=== PATIENT | female | born 1955 | race Hispanic/Latino ===

== ENCOUNTER 2017-03-22 06:00 | Day surgery (SDC) | payer MEDICAID ==
[~2017-03-22] VITALS: Ht 152.4 cm; Wt 82.3 kg
[~2017-03-22 06:00] MED LIST: ALBU90AE IH; AMIO200T2 PO; CARV6.25 PO; CITA-107 PO; FURO40TA5 PO; LISINOPRIL; SERTRALINE; SODIUM CHLORIDE 0.9% 1000ML 1,000 ML IV ONE; SPIR25TA4 PO; WARF10TA45 PO
[2017-03-22 06:12] VITALS: BP 136/66
[2017-03-22] MEDS ORDERED: SERT50TA12 PO ×2 (06:36)
[2017-03-22] MEDS ORDERED: POTA10TA11 PO ×2 (06:36)
[2017-03-22] MEDS ORDERED: ATOR40TA71 PO ×2 (06:36)
[2017-03-22] MEDS ORDERED: NITR0.4T50 SL ×2 (06:36)
[2017-03-22] MEDS ORDERED: APIX5TAB PO ×2 (06:36)
[2017-03-22] MEDS ORDERED: LISI-617 PO ×2 (06:36)
[2017-03-22] MEDS ORDERED: MEPERIDINE-PF 50 MG/ML SYG ONE (06:49)
[2017-03-22] MEDS ORDERED: MIDAZOLAM HCL 1 MG/ML 2ML VIAL ONE (06:49)
[2017-03-22 07:18] VITALS: BP 113/55
== END 2017-03-22 08:17 ==
LOC: DAH 06:00
PROVIDERS: ATTEND Internal Medicine
DX: K63.5 Polyp of colon (principal); K63.89 Other specified diseases of intestine; K57.30 Diverticulosis of large intestine without perforation or abscess without bleeding; E78.00 Pure hypercholesterolemia, unspecified; I10 Essential (primary) hypertension; F41.9 Anxiety disorder, unspecified; F32.9 Major depressive disorder, single episode, unspecified; Z86.73 Personal history of transient ischemic attack (TIA), and cerebral infarction without residual deficits; K21.9 Gastro-esophageal reflux disease without esophagitis; Z68.31 Body mass index [BMI] 31.0-31.9, adult; Z79.899 Other long term (current) drug therapy; D64.9 Anemia, unspecified; Z95.0 Presence of cardiac pacemaker
CPT/HCPCS: 45380; 88305; A4606; J2175; J2250; J7030; 99152; 99153

== ENCOUNTER → 2017-04-19 | Outpatient (CLI) | payer MEDICAID ==
[~2017-04-19] MED LIST changes: +APIX5TAB PO; +ATOR40TA71 PO; +ISOVUE-370 50ML VIAL IV ONE; +LISI-617 PO; +NITR0.4T50 SL; +POTA10TA11 PO; +SERT50TA12 PO; -SODIUM CHLORIDE 0.9% 1000ML 1,000 ML IV ONE
== END | disposition home or self-care (01) ==
LOC: OIH 09:41
PROVIDERS: ATTEND Internal Medicine Gastroenterology
DX: K76.0 Fatty (change of) liver, not elsewhere classified (principal); Z90.710 Acquired absence of both cervix and uterus
CPT/HCPCS: 74178; Q9967

== ENCOUNTER → 2017-04-22 | Outpatient (CLI) | payer MEDICAID ==
[~2017-04-22] MED LIST changes: -ISOVUE-370 50ML VIAL IV ONE; -LISINOPRIL; -SERTRALINE; -WARF10TA45 PO
== END | disposition home or self-care (01) ==
LOC: RAH 07:58
PROVIDERS: ATTEND Internal Medicine Gastroenterology
DX: K21.9 Gastro-esophageal reflux disease without esophagitis (principal); Q39.6 Congenital diverticulum of esophagus
CPT/HCPCS: 74240

== ENCOUNTER → 2017-06-18 | Outpatient (CLI) | payer MEDICAID ==
[~2017-06-18] MED LIST changes: -AMIO200T2 PO; +AMIO200T5 PO; -SPIR25TA4 PO; +SPIR25TA6 PO
== END | disposition home or self-care (01) ==
LOC: RAH 17:43
PROVIDERS: ATTEND Internal Medicine Gastroenterology
DX: M47.895 Other spondylosis, thoracolumbar region (principal)
CPT/HCPCS: 71046

== ENCOUNTER 2018-06-04 08:57 | Observation (INO) | payer MEDICAID ==
[2018-06-02 10:29] VITALS: BP 150/75
[2018-06-02 10:45] LABS: BASOPHILS % (AUTO) 0.5 % (0.0-5.0); EOSINOPHILS % (AUTO) 2.7 % (0.0-8.0); LYMPHOCYTES % (AUTO) 23.1 % (21.0-51.0); MEAN CORPUSCULAR HEMOGLOBIN 29.4 pg (27.0-33.0); MEAN CORPUSCULAR VOLUME 86.4 fL (79-99); MONOCYTES % (AUTO) 8.2 % (3.0-13.0); NEUTROPHILS % (AUTO) 65.5 % (40.0-77.0); PLATELET COUNT (AUTO) 127 K/uL (130-400); RED BLOOD CELL COUNT(AUTO) 4.29 MIL/uL (4.00-5.50); RED CELL DISTRIBUTION WIDTH 15.9 % (11.0-15.5); WHITE BLOOD COUNT (AUTO) 3.7 K/uL (4.8-10.8)
[2018-06-02 10:52] LABS: POTASSIUM 4.4 mmol/L (3.5-5.1)
[2018-06-02 10:52] LABS: APPEARANCE,URINE CLEAR (CLEAR); BILIRUBIN,URINE NEGATIVE (NEGATIVE); COLOR,URINE YELLOW (YELLOW); GLUCOSE, URINE (UA) NEGATIVE (NEGATIVE); KETONES,URINE 5 mg/dL (NEGATIVE); LEUKOCYTE ESTERASE ,URINE TRACE (NEGATIVE); NITRATE,URINE NEGATIVE (NEGATIVE); OCCULT BLOOD,URINE NEGATIVE (NEGATIVE); PROTEIN,URINE TRACE mg/dL (NEGATIVE)
[2018-06-02 10:56] LABS: INR 0.95 (0.85-1.15); PARTIAL THROMBOPLASTIN TIME 27.1 SEC (26.3-35.5)
[2018-06-02 11:07] LABS: BACTERIA,URINE Rare /HPF (None Seen); RBC,URINE 0-1 /HPF (0-1); SQUAMOUS EPITHELIAL CELL,UR Rare /HPF (0-2); WBC,URINE 0-1 /HPF (0-1)
--- NOTE | 2018-06-03 11:06 | NUR ---
CBC FAXED AND REPORTED ABNORMAL WBC, PLATELET LEVEL TO DR. IRMA WALSH. SHE WILL INFORM Mariana GONGORA NP.
--- NOTE | 2018-06-03 13:41 | NUR ---
CBC PER Mariana GONGORA, RIVER CAPTAIN PROCEED WITH PLANNED PROCEDURE.
[~2018-06-04] VITALS: Ht 152.4 cm; Wt 82.7 kg
[2018-06-04] VITALS (9 sets, daily range): BP systolic 101–128; BP diastolic 51–68
[~2018-06-04 08:57] MED LIST changes: +ACET325C5 PO; +ASPI-555 PO; -CITA-107 PO; -FURO40TA5 PO; +ISOS30TA6 PO; +LUBI24CA2 PO; +OMEP40CA37 PO; -SERT50TA12 PO; +SODIUM CHLORIDE 0.9% 500ML 500 ML IV SCH; -SPIR25TA6 PO; +TRAM50TA4 PO; +[UNRECOGNIZED DRUG - OTHER] PO
[2018-06-04] MEDS ORDERED: SODIUM CHLORIDE 0.9% 1000ML 1,000 ML IV ONE (09:07)
--- NOTE | 2018-06-04 09:40 | NUR ---
EDEMA HX ELEPHANTIASIS TO BILATERAL LOWER EXTREMITIES. DARK DISCOLORATION NOTED TO BLE. Addendum: 06/04/18 at 0944 by TERESA CARPENTER RN Amended: Links added.
[2018-06-04] MEDS ORDERED: TORS20TA4 PO (09:49)
[2018-06-04] MEDS ORDERED: LISI10TA7 PO (09:49)
[2018-06-04] MEDS ORDERED: ASPI-1005 PO (09:49)
[2018-06-04] MEDS ORDERED: LIDOCAINE HCL 2% 20ML ONE (13:49)
[2018-06-04] MEDS ORDERED: BIVALIRUDIN 250 MG/VIAL IV ONE (13:49)
[2018-06-04] MEDS ORDERED: IOHEXOL 350 MG/ML 100ML INFUS..BTL IV ONE (13:49)
[2018-06-04] MEDS ORDERED: IOHEXOL-350 50ML VIAL IV ONE (13:49)
[2018-06-04] MEDS ORDERED: NITROGLYCERIN 5 MG/ML 10 ML VIAL IV ONE (13:49)
--- NOTE | 2018-06-04 14:05 | NUR ---
procedure pt taken to medical lab technologist for heart cath, pt awake and alert, family at bedside.
[2018-06-04] MEDS ORDERED: MIDAZOLAM HCL 1 MG/ML 2ML VIAL ONE (14:21)
[2018-06-04] MEDS ORDERED: MILRINONE-D5W 20 MG/100 ML 100 ML IV SCH (16:15)
[2018-06-04] MEDS ORDERED: NITROGLYCERIN 0.4 MG SL TAB SL PRN (16:30)
[2018-06-04] MEDS ORDERED: ALBUTEROL SULFATE 0.083% 2.5 MG/3 ML INH IH PRN (16:30)
--- NOTE | 2018-06-04 17:05 | NUR ---
POST WAITING FOR ROOM IN TELEMETRY FLOOR TO TRANSFER PATIENT . TRUCKLOAD CHECKER AWARE
--- NOTE | 2018-06-04 17:05 | NUR ---
POST RECEIVED PT BACK FROM [facility]ACK[facility] , S/P RIGHT /LEFT HEART CATH, DRESSING TO RIGHT GROIN DRY AND INTACT, SEE POST CATH ASSESSMENT. PT AWAKE AND ALERT IN BED, VS STABLE , INSTRUCTED TO KEEP BEDREST FOR 4HRS , TO KEEP LEG STRAIGHT AT ALL TIMES, TO CALL NURSE FOR ANY ASSISTANCE NOTED. FAMILY AT BEDSIDE DR. Maty SOLIS SPOKE TO FAMILY ABOUT HEART CATH RESULTS AND TREATMENT.
--- NOTE | 2018-06-04 18:55 | NUR ---
report report given to Jean Marie Vasquez RN at telemetry floor,
[2018-06-04] MEDS: ACETAMINOPHEN 325 MG TAB PO PRN (19:10)
--- NOTE | 2018-06-04 19:15 | NUR ---
transfer patient transfered to room 231 , pt awake and alert in bed, no distress noted. right groin dressing dry and intact, family at bedside.
--- NOTE | 2018-06-04 19:30 | NUR ---
PT ARRIVED TO UNIT S/P C. NO DISTRESS NOTED. NO SOB OR PAIN STATED. MINIMAL TENDERNESS NOTED TO GROIN SITE. FAMILY AT BEDSIDE. CONTINUES ON BEDREST. PT HAS EDEMA TO LOWER EXTREMITIES. BOWEL MOVEMENT 06/04. ABLE TO AMBULATE WITHOUT ASSISTANCE. PERRLA.
[2018-06-04] MEDS: CARVEDILOL 6.25 MG TABLET PO SCH (20:20)
[2018-06-04] MEDS: LUBIPROSTONE 24 MCG CAP PO SCH (20:21)
[2018-06-04] MEDS: ATORVASTATIN CALCIUM 40 MG TABLET PO SCH (20:21)
[2018-06-04] MEDS: TRAMADOL HCL 50 MG TABLET PO PRN (20:22)
[2018-06-04] MEDS ORDERED: APIXABAN 5 MG TABLET PO SCH (21:00)
[2018-06-04] MEDS ORDERED: ONDANSETRON HCL 4 MG/2 ML VIAL ONE (23:05)
[2018-06-05] VITALS (15 sets, daily range): BP systolic 78–125; BP diastolic 37–61
--- NOTE | 2018-06-05 01:20 | NUR ---
PT ON MILRINONE DRIP. PT STATED FEELING NAUSEATED, DIZZY, AND HAS GENERAL WEAKNESS AND IS UNABLE TO WALK BACK TO BED AFTER HAVING LOOSE STOOLS. PT PLACED ON NASAL CANNULA AT 3LPM DUE TO SOB. DR. SOLIS PAGED AND NEW ORDER FOR 250ML BOLUS AND ORTHOSTATIC BP'S IN THE AM.
[2018-06-05] MEDS ORDERED: SODIUM CHLORIDE 0.9% 250 ML IV ONE (01:42)
--- NOTE | 2018-06-05 06:45 | NUR ---
PT BP 70'S/30'S. DR. SOLIS PAGED. PENDING CALL BACK.
[2018-06-05] MEDS ORDERED: LISINOPRIL 10 MG TABLET PO SCH (09:00)
[2018-06-05] MEDS: ISOSORBIDE MONO 30MG TAB SR PO SCH (09:00)
[2018-06-05] MEDS: LUBIPROSTONE 24 MCG CAP PO SCH ×2 (09:00→19:53)
[2018-06-05] MEDS: CARVEDILOL 6.25 MG TABLET PO SCH ×2 (09:00→19:54)
[2018-06-05] MEDS ORDERED: LISI10TA7 PO (09:34)
[2018-06-05] MEDS ORDERED: TORS100T16 PO (09:34)
[2018-06-05 09:47] LABS: MEAN CORPUSCULAR HEMOGLOBIN 29.6 pg (27.0-33.0); MEAN CORPUSCULAR HGB CONC 34.3 g/dL (32.0-36.0); MEAN CORPUSCULAR VOLUME 86.2 fL (79-99); NUCLEATED RED BLOOD CELLS 0.1 % (0.0-0.19); PLATELET COUNT (AUTO) 107 K/uL (130-400); RED BLOOD CELL COUNT(AUTO) 3.48 MIL/uL (4.00-5.50); RED CELL DISTRIBUTION WIDTH 16.2 % (11.0-15.5); WHITE BLOOD COUNT (AUTO) 4.5 K/uL (4.8-10.8)
[2018-06-05] MEDS: ASPIRIN 81MG TAB.CHEW PO SCH (10:01)
[2018-06-05] MEDS: PANTOPRAZOLE SODIUM 40 MG TABLET.DR PO SCH (10:01)
[2018-06-05] MEDS: AMIODARONE HCL 200 MG TABLET PO SCH (10:02)
[2018-06-05] MEDS: APIXABAN 5 MG TABLET PO SCH ×2 (10:02→19:55)
[2018-06-05] MEDS: POTASSIUM CHLORIDE 20 MEQ ERTAB PO SCH (10:03)
[2018-06-05 10:19] LABS: CREATININE 1.7 mg/dL (0.5-1.5); POTASSIUM 3.9 mmol/L (3.5-5.1)
[2018-06-05 10:25] LABS: ALBUMIN 2.5 g/dL (3.5-5.0); BILIRUBIN,TOTAL 0.8 mg/dL (0.2-1.0); TOTAL PROTEIN, SERUM 5.7 g/dL (6.0-8.3)
[2018-06-05] MEDS: SODIUM CHLORIDE 0.9% 1000ML 1,000 ML IV SCH (12:00)
[2018-06-05] MEDS: TRAMADOL HCL 50 MG TABLET PO PRN (16:37)
[2018-06-05] MEDS: ATORVASTATIN CALCIUM 40 MG TABLET PO SCH (19:55)
--- NOTE | 2018-06-05 21:00 | NUR ---
PT IN BED, STATES HAVING LESS DIZZY SPELLS DURING THE DAY, BUT DOES CONTINUE TO FEEL WEAK AND DIZZY AT TIMES. ESPECIALLY WHEN STANDING. PT NO ABLE TO COMPLETE ORTHOSTATIC BP'S BECAUSE SHE GETS VERY WEAK WHEN DOING THE STANDING PART. PT ON NASAL CANNULA. GETS SOB AT TIMES AND STATES HAVING EPISODES WHERE SHE CANNOT BREATH AND HAS TO RAISE HERSELF UP.
[2018-06-06] MEDS: SODIUM CHLORIDE 0.9% 1000ML 1,000 ML IV SCH (01:20)
[2018-06-06 03:00] VITALS: BP_SYST 104; BP_SYST 113; BP_SYST 114; BP_DIAS 42; BP_DIAS 56; BP_DIAS 59
[2018-06-06 03:41] LABS: BASOPHILS % (AUTO) 0.4 % (0.0-5.0); HEMATOCRIT 29.7 % (36-48); LYMPHOCYTES % (AUTO) 27.5 % (21.0-51.0); MEAN CORPUSCULAR HEMOGLOBIN 29.4 pg (27.0-33.0); MEAN CORPUSCULAR HGB CONC 34.2 g/dL (32.0-36.0); MEAN CORPUSCULAR VOLUME 85.9 fL (79-99); MONOCYTES % (AUTO) 11.7 % (3.0-13.0); NEUTROPHILS % (AUTO) 58.4 % (40.0-77.0); NUCLEATED RED BLOOD CELLS 0.1 % (0.0-0.19); PLATELET COUNT (AUTO) 79 K/uL (130-400); RED BLOOD CELL COUNT(AUTO) 3.46 MIL/uL (4.00-5.50); WHITE BLOOD COUNT (AUTO) 3.7 K/uL (4.8-10.8)
[2018-06-06 03:56] LABS: CREATININE 1.3 mg/dL (0.5-1.5)
[2018-06-06 07:42] VITALS: BP 107/49
[2018-06-06 07:44] VITALS: BP 112/50
[2018-06-06 07:45] VITALS: BP 112/54
[2018-06-06] MEDS: CARVEDILOL 6.25 MG TABLET PO SCH (10:00)
[2018-06-06] MEDS: APIXABAN 5 MG TABLET PO SCH (10:00)
[2018-06-06] MEDS: ASPIRIN 81MG TAB.CHEW PO SCH (10:00)
[2018-06-06] MEDS: PANTOPRAZOLE SODIUM 40 MG TABLET.DR PO SCH (10:00)
[2018-06-06] MEDS: LUBIPROSTONE 24 MCG CAP PO SCH (10:00)
[2018-06-06] MEDS: ISOSORBIDE MONO 30MG TAB SR PO SCH (10:01)
[2018-06-06] MEDS: POTASSIUM CHLORIDE 20 MEQ ERTAB PO SCH (10:01)
[2018-06-06] MEDS: AMIODARONE HCL 200 MG TABLET PO SCH (10:01)
[2018-06-06 11:22] VITALS: BP 96/44
[2018-06-06] MEDS: ACETAMINOPHEN 325 MG TAB PO PRN (12:11)
[2018-06-06] MEDS ORDERED: ONDANSETRON HCL MDV 20ML 2 MG/ML VIAL IVP SCH (14:15)
[2018-06-06] MEDS ORDERED: ONDANSETRON HCL 4 MG/2 ML VIAL ONE (14:20)
== END 2018-06-06 16:15 | disposition home or self-care (01) ==
LOC: DAH 08:57 → DAHIP 08:58 → 2AH 19:25
PROVIDERS: ADMIT Internal Medicine Cardiovascular Disease; ATTEND Internal Medicine Cardiovascular Disease
DX: R07.89 Other chest pain (principal); I25.10 Atherosclerotic heart disease of native coronary artery without angina pectoris; I27.20 Pulmonary hypertension, unspecified; I34.0 Nonrheumatic mitral (valve) insufficiency; I42.0 Dilated cardiomyopathy; I48.0 Paroxysmal atrial fibrillation; I48.4 Atypical atrial flutter; I50.43 Acute on chronic combined systolic (congestive) and diastolic (congestive) heart failure; I77.1 Stricture of artery; I87.2 Venous insufficiency (chronic) (peripheral); Z79.01 Long term (current) use of anticoagulants; Z86.73 Personal history of transient ischemic attack (TIA), and cerebral infarction without residual deficits; Z93.1 Gastrostomy status; Z95.810 Presence of automatic (implantable) cardiac defibrillator
CPT/HCPCS: 36415 ×3; 71045; 80048 ×2; 80053; 81001; 85025 ×2; 85027; 85610; 85730; 93005; 93460; 94664; 96365; 96366 ×2; C1760; C1769; C1894 ×2; G0378 ×55; J1644; J2250; J2260; J2405 ×2; J3490 ×2; J7030 ×3; Q9965; Q9967 ×2; 99156; 99157; J0583

== ENCOUNTER 2018-07-03 10:27 | Emergency (ER) | payer MEDICAID ==
[~2018-07-03 10:27] MED LIST changes: -ASPI-555 PO; -ISOS30TA6 PO; -LISI-617 PO; +LISI10TA7 PO; -SODIUM CHLORIDE 0.9% 500ML 500 ML IV SCH; +TORS100T16 PO; -[UNRECOGNIZED DRUG - OTHER] PO
[2018-07-03 11:33] LABS: BASOPHILS % (AUTO) 0.8 % (0.0-5.0); EOSINOPHILS % (AUTO) 3.5 % (0.0-8.0); HEMATOCRIT 35.4 % (36-48); LYMPHOCYTES % (AUTO) 15.1 % (21.0-51.0); MEAN CORPUSCULAR HEMOGLOBIN 28.6 pg (27.0-33.0); MEAN CORPUSCULAR HGB CONC 32.9 g/dL (32.0-36.0); MEAN CORPUSCULAR VOLUME 86.7 fL (79-99); MONOCYTES % (AUTO) 9.2 % (3.0-13.0); NEUTROPHILS % (AUTO) 71.4 % (40.0-77.0); PLATELET COUNT (AUTO) 119 K/uL (130-400); RED BLOOD CELL COUNT(AUTO) 4.08 MIL/uL (4.00-5.50); RED CELL DISTRIBUTION WIDTH 15.9 % (11.0-15.5); WHITE BLOOD COUNT (AUTO) 3.9 K/uL (4.8-10.8)
[2018-07-03] MEDS ORDERED: SODIUM CHLORIDE 0.9% 500ML 500 ML IV ONE (11:35)
[2018-07-03] MEDS ORDERED: ONDANSETRON HCL 4 MG/2 ML VIAL ONE (11:36)
[2018-07-03 11:44] LABS: CREATININE 1.1 mg/dL (0.5-1.5); POTASSIUM 3.9 mmol/L (3.5-5.1)
[2018-07-03 11:52] LABS: BILIRUBIN,DIRECT 0.1 mg/dL (0.0-0.3); BILIRUBIN,TOTAL 0.5 mg/dL (0.2-1.0); TOTAL PROTEIN, SERUM 6.5 g/dL (6.0-8.3)
[2018-07-03 12:52] LABS: B-TYPE NATRIURETIC PEPTIDE 117 pg/mL (0-100)
== END 2018-07-03 14:53 | disposition home or self-care (01) ==
LOC: EDH 10:27
DX: R42 Dizziness and giddiness (principal); R11.2 Nausea with vomiting, unspecified; I10 Essential (primary) hypertension; E78.5 Hyperlipidemia, unspecified
CPT/HCPCS: 36415; 71045; 74176; 76700; 80048; 80076; 82550; 83690; 83880; 84484; 85025; 87804 ×2; 93005; 96361; 96374; 99285; J2405; J7040

== ENCOUNTER → 2018-10-16 | Outpatient (CLI) | payer MEDICAID ==
--- NOTE | 2018-10-16 12:00 | NUR ---
MBSS COMPLETED. + PENETRATION WITH THIN LIQUIDS AND MIXED TEXTURE. RECOMMEND REGULAR TEXTURE, THIN LIQUIDS; PILLS CRUSHED WITH APPLE SAUCE WITH USE OF STRICT CHIN TUCK. RECOMMENDATIONS: 1. SKILLED SPEECH THERAPY 2-3 TIMES A WEEK TARGETING DYSPHAGIA SON AT BEDSIDE AND EDUCATED ON RESULTS AND RECOMMENDATIONS AT THIS TIME. THEY VERBALIZED AGREEMENT AND COMPLIANCE WITH RECOMMENDATIONS. WRITTEN HANDOUT WITH INSTRUCTIONS IN BENGALI AND TAJIK PROVIDED AT THIS TIME. Addendum: 10/17/18 at 0900 by JESSE RODRIGUEZ [facility] Amended: Links added.
== END | disposition home or self-care (01) ==
LOC: RAH 10:53
PROVIDERS: ATTEND Internal Medicine Gastroenterology
DX: R63.3 Feeding difficulties (principal); R13.13 Dysphagia, pharyngeal phase
CPT/HCPCS: 74230; 92611

== ENCOUNTER → 2018-10-31 | Outpatient (CLI) | payer MEDICAID ==
[~2018-10-31] MED LIST changes: -ACET325C5 PO; +ACET325C6 PO
== END | disposition home or self-care (01) ==
LOC: RAH 10:31
PROVIDERS: ATTEND Internal Medicine Gastroenterology
DX: K30 Functional dyspepsia (principal)
CPT/HCPCS: 78264; A9541

== ENCOUNTER → 2020-08-15 | Outpatient (CLI) | payer MEDICAID ==
[~2020-08-15] MED LIST changes: -AMIO200T5 PO; +AMIO200T6 PO; +LISI10TA24 PO; -LISI10TA7 PO; +OMEP40CA21 PO; -OMEP40CA37 PO
== END | disposition home or self-care (01) ==
LOC: RAH 12:44
PROVIDERS: ATTEND Internal Medicine Cardiovascular Disease
DX: R51.9 Headache, unspecified (principal)
CPT/HCPCS: 70450

== ENCOUNTER 2021-04-24 09:34 | Observation (INO) | payer MEDICAID ==
[~2021-04-24] VITALS: Ht 162.6 cm; Wt 78.5 kg
[~2021-04-24 09:34] MED LIST changes: -AMIO200T6 PO; +AMIO200T68 PO; +POTA-183 PO; -POTA10TA11 PO
[2021-04-24 10:23] LABS: BASOPHILS % (AUTO) 0.2 % (0.0-5.0); EOSINOPHILS % (AUTO) 3.5 % (0.0-8.0); HEMATOCRIT 32.1 % (36-48); LYMPHOCYTES % (AUTO) 21.2 % (21.0-51.0); MEAN CORPUSCULAR HEMOGLOBIN 28.2 pg (27.0-33.0); MEAN CORPUSCULAR HGB CONC 32.4 g/dL (32.0-36.0); MONOCYTES % (AUTO) 8.9 % (3.0-13.0); PLATELET COUNT (AUTO) 155 K/uL (130-400); RED BLOOD CELL COUNT(AUTO) 3.69 MIL/uL (4.00-5.50); RED CELL DISTRIBUTION WIDTH 14.8 % (11.0-15.5); WHITE BLOOD COUNT (AUTO) 4.8 K/uL (4.8-10.8)
[2021-04-24 10:32] LABS: CREATININE 0.9 mg/dL (0.5-1.5); POTASSIUM 4.8 mmol/L (3.5-5.1)
[2021-04-24 10:37] LABS: ALBUMIN 2.7 g/dL (3.5-5.0); BILIRUBIN,TOTAL 0.5 mg/dL (0.2-1.0); TOTAL PROTEIN, SERUM 6.7 g/dL (6.0-8.3)
[2021-04-24 12:08] LABS: APPEARANCE,URINE Clear (CLEAR); BILIRUBIN,URINE Negative (NEGATIVE); COLOR,URINE Yellow (YELLOW); GLUCOSE, URINE (UA) Negative (NEGATIVE); KETONES,URINE Negative (NEGATIVE); LEUKOCYTE ESTERASE ,URINE Small (NEGATIVE); NITRATE,URINE Negative (NEGATIVE); OCCULT BLOOD,URINE Negative (NEGATIVE); PROTEIN,URINE Negative (NEGATIVE)
[2021-04-24] MEDS ORDERED: FUROSEMIDE 20MG VIAL ONE (12:15)
[2021-04-24 12:18] LABS: BACTERIA,URINE Rare /HPF (None Seen); RBC,URINE 0-1 /HPF (0-1); SQUAMOUS EPITHELIAL CELL,UR Rare /HPF (0-2); WBC,URINE 0-1 /HPF (0-1)
[2021-04-24] MEDS ORDERED: FUROSEMIDE 20MG VIAL IV ONE (12:30)
[2021-04-24] MEDS ORDERED: LORAZEPAM 2 MG/ML 1 ML VIAL IVP ONE (13:45)
[2021-04-24 14:37] LABS: AMPHET/METH SCREEN,URINE NEGATIVE (NEGATIVE); BARBITURATE SCREEN, URINE NEGATIVE (NEGATIVE); BENZODIAZEPINES SCREEN,URINE NEGATIVE (NEGATIVE); CANNABINOID SCREEN,URINE NEGATIVE (NEGATIVE); COCAINE SCREEN,URINE NEGATIVE (NEGATIVE); OPIATE SCREEN,URINE NEGATIVE (NEGATIVE); PHENCYCLIDINE SCREEN,URINE NEGATIVE (NEGATIVE)
[2021-04-24] MEDS ORDERED: LORAZEPAM 2 MG/ML 1 ML VIAL ONE (15:39)
[2021-04-24] MEDS ORDERED: ESCI5TAB16 PO (17:30)
[2021-04-24] MEDS ORDERED: GABA300C PO (17:30)
[2021-04-24] MEDS ORDERED: TRAZ-187 PO (17:30)
[2021-04-24] MEDS ORDERED: DIAZ2TAB3 PO (17:30)
[2021-04-24] MEDS ORDERED: DONE10TA43 PO (17:30)
[2021-04-24] MEDS ORDERED: TORS20TA4 PO (17:30)
[2021-04-24] MEDS ORDERED: SACU1TAB PO (17:30)
[2021-04-24] MEDS ORDERED: MEMA5TAB42 PO (17:30)
[2021-04-24 17:52] LABS: HEMOGLOBIN A1C 6.3 % (4.0-6.0)
[2021-04-24 18:04] LABS: THYROID STIMULATING HORMONE 1.18 uIU/mL (0.36-3.74)
[2021-04-24] MEDS: BUMETANIDE 1MG/4ML VIAL IVP SCH (18:39)
[2021-04-24] MEDS: PANTOPRAZOLE 40 MG TAB DR PO SCH (18:39)
[2021-04-24] MEDS ORDERED: DIAZEPAM 2 MG TAB PO PRN (19:30)
[2021-04-24] MEDS ORDERED: TRAZODONE HCL 100 MG TABLET PO PRN (19:30)
[2021-04-24] MEDS: MEMANTINE HCL 5 MG TABLET PO SCH (20:43)
[2021-04-24] MEDS: CARVEDILOL 6.25 MG TABLET PO SCH (20:43)
[2021-04-24] MEDS: GABAPENTIN 300 MG CAPSULE PO SCH (20:44)
[2021-04-24] MEDS: APIXABAN 5 MG TABLET PO SCH (20:48)
[2021-04-24] MEDS: LUBIPROSTONE 24 MCG CAP PO SCH (20:48)
[2021-04-24] MEDS: SACUBITRIL/VALSARTAN 1 EACH TABLET PO SCH (20:48)
[2021-04-25] MEDS: BUMETANIDE 1MG/4ML VIAL IVP SCH ×3 (00:31→22:07)
[2021-04-25 03:55] VITALS: BP 132/73
[2021-04-25 07:19] LABS: BASOPHILS % (AUTO) 0.4 % (0.0-5.0); EOSINOPHILS % (AUTO) 5.3 % (0.0-8.0); HEMATOCRIT 34.1 % (36-48); LYMPHOCYTES % (AUTO) 20.7 % (21.0-51.0); MEAN CORPUSCULAR HEMOGLOBIN 27.8 pg (27.0-33.0); MEAN CORPUSCULAR HGB CONC 31.1 g/dL (32.0-36.0); MEAN CORPUSCULAR VOLUME 89.5 fL (79-99); MONOCYTES % (AUTO) 9.5 % (3.0-13.0); NEUTROPHILS % (AUTO) 63.9 % (40.0-77.0); PLATELET COUNT (AUTO) 168 K/uL (130-400); RED BLOOD CELL COUNT(AUTO) 3.81 MIL/uL (4.00-5.50); RED CELL DISTRIBUTION WIDTH 14.7 % (11.0-15.5); WHITE BLOOD COUNT (AUTO) 4.9 K/uL (4.8-10.8)
[2021-04-25 07:30] LABS: MAGNESIUM 2.1 mg/dL (1.80-2.40); POTASSIUM 3.9 mmol/L (3.5-5.1)
[2021-04-25 08:08] LABS: B-TYPE NATRIURETIC PEPTIDE 402 pg/mL (0-100)
[2021-04-25 08:09] VITALS: BP 130/63
[2021-04-25] MEDS: PANTOPRAZOLE 40 MG TAB DR PO SCH ×2 (09:20→11:26)
[2021-04-25] MEDS: CITALOPRAM 20 MG TABLET PO SCH (11:24)
[2021-04-25] MEDS: LUBIPROSTONE 24 MCG CAP PO SCH ×2 (11:24→20:19)
[2021-04-25] MEDS: DONEPEZIL HCL 5 MG TAB PO SCH (11:25)
[2021-04-25] MEDS: MEMANTINE HCL 5 MG TABLET PO SCH ×2 (11:25→20:18)
[2021-04-25] MEDS: CARVEDILOL 6.25 MG TABLET PO SCH ×2 (11:25→20:18)
[2021-04-25] MEDS: SACUBITRIL/VALSARTAN 1 EACH TABLET PO SCH ×2 (11:25→20:19)
[2021-04-25] MEDS: APIXABAN 5 MG TABLET PO SCH ×2 (11:25→20:19)
[2021-04-25 12:09] VITALS: BP 110/68
[2021-04-25 16:46] VITALS: BP 130/65
[2021-04-25 20:00] VITALS: BP 118/67
[2021-04-25] MEDS ORDERED: ACETAMINOPHEN 325 MG TAB PO PRN (20:00)
[2021-04-25] MEDS: GABAPENTIN 300 MG CAPSULE PO SCH (20:19)
[2021-04-26] VITALS: BP 105/52
[2021-04-26 04:00] VITALS: BP 105/47
[2021-04-26 08:00] VITALS: BP 114/59
[2021-04-26] MEDS ORDERED: AMIODARONE 200 MG TABLET PO SCH (09:00)
[2021-04-26] MEDS: BUMETANIDE 1MG/4ML VIAL IVP SCH (09:53)
[2021-04-26] MEDS: LUBIPROSTONE 24 MCG CAP PO SCH (09:53)
[2021-04-26 09:54] VITALS: BP 114/59
[2021-04-26] MEDS: CARVEDILOL 6.25 MG TABLET PO SCH (09:54)
[2021-04-26] MEDS: SACUBITRIL/VALSARTAN 1 EACH TABLET PO SCH (09:54)
[2021-04-26] MEDS: CITALOPRAM 20 MG TABLET PO SCH (09:54)
[2021-04-26] MEDS: MEMANTINE HCL 5 MG TABLET PO SCH (09:55)
[2021-04-26] MEDS: PANTOPRAZOLE 40 MG TAB DR PO SCH (09:56)
[2021-04-26] MEDS: APIXABAN 5 MG TABLET PO SCH (09:56)
[2021-04-26] MEDS: DONEPEZIL HCL 5 MG TAB PO SCH (09:57)
[2021-04-26] MEDS ORDERED: TORS20TA4 PO (11:29)
== END 2021-04-26 13:30 | disposition home or self-care (01) ==
LOC: EDH 09:34 → EDHIP 09:35 → OBSVTOIN 16:06 → INTOOBSV 16:06 → UNDOADMOB 16:06 → 4CH 04-25 03:55
PROVIDERS: ADMIT Internal Medicine; ATTEND Internal Medicine
DX: J96.01 Acute respiratory failure with hypoxia (principal); Z20.822 Contact with and (suspected) exposure to COVID-19; I11.0 Hypertensive heart disease with heart failure; I50.23 Acute on chronic systolic (congestive) heart failure; I42.0 Dilated cardiomyopathy; I48.91 Unspecified atrial fibrillation; R07.89 Other chest pain; E78.5 Hyperlipidemia, unspecified; F03.90 Unspecified dementia, unspecified severity, without behavioral disturbance, psychotic disturbance, mood disturbance, and anxiety; E78.00 Pure hypercholesterolemia, unspecified; F41.1 Generalized anxiety disorder; I20.8 Other forms of angina pectoris; I34.0 Nonrheumatic mitral (valve) insufficiency; I44.0 Atrioventricular block, first degree; I48.0 Paroxysmal atrial fibrillation; I48.4 Atypical atrial flutter; D68.59 Other primary thrombophilia; I95.1 Orthostatic hypotension; R13.10 Dysphagia, unspecified; Z91.14 Patient's other noncompliance with medication regimen; Z93.1 Gastrostomy status; Z95.810 Presence of automatic (implantable) cardiac defibrillator; Z79.01 Long term (current) use of anticoagulants; Z86.73 Personal history of transient ischemic attack (TIA), and cerebral infarction without residual deficits; Z79.899 Other long term (current) drug therapy; Z98.890 Other specified postprocedural states
CPT/HCPCS: 36415 ×2; 71045; 80048; 80053; 80061; 80305; 81001; 82550 ×2; 83036; 83735; 83874; 83880 ×2; 84145; 84443; 84484 ×3; 85025 ×2; 85651; 86140; 87635; 93005; 93970; 96374; 96375; 96376 ×2; 99285; G0378 ×44; J1940; J2060; J3490 ×4

== ENCOUNTER → 2021-05-23 | Outpatient (CLI) | payer MEDICAID ==
[~2021-05-23] MED LIST changes: -ACET325C6 PO; -CARV6.25 PO; +DIAZ2TAB3 PO; +DONE10TA43 PO; +ESCI5TAB16 PO; +GABA300C PO; -LISI10TA24 PO; -LUBI24CA2 PO; +MEMA5TAB42 PO; -NITR0.4T50 SL; -OMEP40CA21 PO; -POTA-183 PO; +SACU1TAB PO; -TORS100T16 PO; +TORS20TA4 PO; -TRAM50TA4 PO; +TRAZ-187 PO
[2021-05-23 11:42] LABS: BASOPHILS % (AUTO) 0.2 % (0.0-5.0); EOSINOPHILS % (AUTO) 2.4 % (0.0-8.0); HEMATOCRIT 35.8 % (36-48); LYMPHOCYTES % (AUTO) 22.7 % (21.0-51.0); MEAN CORPUSCULAR HGB CONC 31.6 g/dL (32.0-36.0); MEAN CORPUSCULAR VOLUME 88.8 fL (79-99); MONOCYTES % (AUTO) 7.1 % (3.0-13.0); NEUTROPHILS % (AUTO) 67.4 % (40.0-77.0); PLATELET COUNT (AUTO) 156 K/uL (130-400); RED BLOOD CELL COUNT(AUTO) 4.03 MIL/uL (4.00-5.50); RED CELL DISTRIBUTION WIDTH 13.8 % (11.0-15.5); WHITE BLOOD COUNT (AUTO) 4.9 K/uL (4.8-10.8)
[2021-05-23 11:53] LABS: APPEARANCE,URINE Clear (CLEAR); BILIRUBIN,URINE Negative (NEGATIVE); COLOR,URINE Yellow (YELLOW); GLUCOSE, URINE (UA) Negative (NEGATIVE); KETONES,URINE Negative (NEGATIVE); LEUKOCYTE ESTERASE ,URINE Trace (NEGATIVE); NITRATE,URINE Negative (NEGATIVE); OCCULT BLOOD,URINE Negative (NEGATIVE); PH,URINE 7.5 (5.0-8.0); PROTEIN,URINE Negative (NEGATIVE)
[2021-05-23 12:05] LABS: BACTERIA,URINE Few /HPF (None Seen); RBC,URINE 0-1 /HPF (0-1); SQUAMOUS EPITHELIAL CELL,UR 0-2 /HPF (0-2); WBC,URINE 0-1 /HPF (0-1)
[2021-05-23 12:07] LABS: ALBUMIN 3.1 g/dL (3.5-5.0); BILIRUBIN,TOTAL 0.5 mg/dL (0.2-1.0); POTASSIUM 4.2 mmol/L (3.5-5.1); TOTAL PROTEIN, SERUM 7.1 g/dL (6.0-8.3)
== END | disposition home or self-care (01) ==
LOC: LAB 10:40
PROVIDERS: ATTEND Internal Medicine
DX: E78.5 Hyperlipidemia, unspecified (principal); N18.9 Chronic kidney disease, unspecified
CPT/HCPCS: 36415; 80053; 81001; 82150; 83690; 85025

== ENCOUNTER 2021-12-07 11:48 | Emergency (ER) | payer MEDICAID ==
[~2021-12-07 11:48] MED LIST changes: +ONDA4TAB10 PO; +PANT40TA PO
[2021-12-07 12:14] LABS: BASOPHILS % (AUTO) 0.4 % (0.0-5.0); EOSINOPHILS % (AUTO) 2.4 % (0.0-8.0); HEMATOCRIT 34.6 % (36-48); LYMPHOCYTES % (AUTO) 28.5 % (21.0-51.0); MEAN CORPUSCULAR HEMOGLOBIN 27.1 pg (27.0-33.0); MEAN CORPUSCULAR HGB CONC 32.1 g/dL (32.0-36.0); MEAN CORPUSCULAR VOLUME 84.4 fL (79-99); MONOCYTES % (AUTO) 8.9 % (3.0-13.0); NEUTROPHILS % (AUTO) 59.4 % (40.0-77.0); PLATELET COUNT (AUTO) 146 K/uL (130-400); RED CELL DISTRIBUTION WIDTH 14.4 % (11.0-15.5); WHITE BLOOD COUNT (AUTO) 4.5 K/uL (4.8-10.8)
[2021-12-07 12:26] LABS: CREATININE 1.3 mg/dL (0.5-1.5); POTASSIUM 3.9 mmol/L (3.5-5.1)
[2021-12-07] MEDS ORDERED: FUROSEMIDE 40MG VIAL IV ONE (13:30)
[2021-12-07 14:55] VITALS: BP 152/78
== END 2021-12-07 16:00 | disposition home or self-care (01) ==
LOC: EDH 11:48
DX: R07.89 Other chest pain (principal); I42.9 Cardiomyopathy, unspecified; Q63.9 Congenital malformation of kidney, unspecified; I25.10 Atherosclerotic heart disease of native coronary artery without angina pectoris; I50.9 Heart failure, unspecified; I48.91 Unspecified atrial fibrillation; Z98.890 Other specified postprocedural states; Z79.01 Long term (current) use of anticoagulants; Z79.899 Other long term (current) drug therapy
CPT/HCPCS: 99285; 96374; 71045; 84484; 80053; 83880; 85025; 36415; 93005; J1940

== ENCOUNTER 2022-01-31 18:51 | Emergency (ER) | payer MEDICAID ==
[~2022-01-31] VITALS: Ht 162.6 cm; Wt 81.6 kg
[2022-01-31 19:45] LABS: BASOPHILS % (AUTO) 0.4 % (0.0-5.0); EOSINOPHILS % (AUTO) 2.6 % (0.0-8.0); LYMPHOCYTES % (AUTO) 24.1 % (21.0-51.0); MEAN CORPUSCULAR HGB CONC 31.5 g/dL (32.0-36.0); MEAN CORPUSCULAR VOLUME 85.6 fL (79-99); MONOCYTES % (AUTO) 8.8 % (3.0-13.0); NEUTROPHILS % (AUTO) 63.9 % (40.0-77.0); PLATELET COUNT (AUTO) 148 K/uL (130-400); RED BLOOD CELL COUNT(AUTO) 3.97 MIL/uL (4.00-5.50); RED CELL DISTRIBUTION WIDTH 14.2 % (11.0-15.5); WHITE BLOOD COUNT (AUTO) 5.5 K/uL (4.8-10.8)
[2022-01-31 19:54] LABS: CREATININE 1.2 mg/dL (0.5-1.5); POTASSIUM 3.9 mmol/L (3.5-5.1)
[2022-01-31 20:10] LABS: B-TYPE NATRIURETIC PEPTIDE 243 pg/mL (0-100)
[2022-01-31 20:26] LABS: CRP QUANTITATIVE < 2.00 mg/L (0.00-9.0)
[2022-01-31 20:27] VITALS: BP 149/74
[2022-01-31] MEDS ORDERED: LORAZEPAM 0.5 MG TABLET PO ONE (20:30)
[2022-01-31] MEDS ORDERED: HYDROCODONE/ACETAMINOPHEN 5/325 MG TAB PO ONE (20:30)
[2022-01-31] MEDS ORDERED: FUROSEMIDE 20MG VIAL IV ONE (22:30)
[2022-01-31] MEDS ORDERED: MORPHINE 2 MG SYG ONE (23:01)
[2022-01-31 23:09] LABS: APPEARANCE,URINE CLEAR (CLEAR); BILIRUBIN,URINE NEGATIVE (NEGATIVE); COLOR,URINE LIGHT-YELLOW (YELLOW); GLUCOSE, URINE (UA) NEGATIVE (NEGATIVE); KETONES,URINE NEGATIVE (NEGATIVE); LEUKOCYTE ESTERASE ,URINE NEGATIVE Leu/uL (NEGATIVE); NITRATE,URINE NEGATIVE (NEGATIVE); OCCULT BLOOD,URINE NEGATIVE (NEGATIVE); PH,URINE 6.5 (5.0-8.0); PROTEIN,URINE NEGATIVE (NEGATIVE); UROBILINOGEN,URINE 0.2 mg/dL (0.2-1.0)
== END 2022-02-01 00:40 | disposition home or self-care (01) ==
LOC: EDH 18:51
DX: G89.4 Chronic pain syndrome (principal); F41.9 Anxiety disorder, unspecified; F32.A Depression, unspecified; E78.00 Pure hypercholesterolemia, unspecified; I11.0 Hypertensive heart disease with heart failure; I50.9 Heart failure, unspecified; R60.0 Localized edema; Z20.822 Contact with and (suspected) exposure to COVID-19; Z79.01 Long term (current) use of anticoagulants; Z79.899 Other long term (current) drug therapy; Z95.810 Presence of automatic (implantable) cardiac defibrillator
CPT/HCPCS: 99285; 96374; 71045; 87635; 96375; 83735; 84484; 80053; 83880; 85025; 87804 ×2; 86140; 81003; 36415; 93005; C9803; J1940

== ENCOUNTER → 2022-02-14 | Outpatient (CLI) | payer MEDICAID ==
[2022-02-14 16:19] LABS: BASOPHILS % (AUTO) 0.4 % (0.0-5.0); EOSINOPHILS % (AUTO) 1.3 % (0.0-8.0); HEMATOCRIT 33.7 % (36-48); LYMPHOCYTES % (AUTO) 18.2 % (21.0-51.0); MEAN CORPUSCULAR HEMOGLOBIN 26.1 pg (27.0-33.0); MEAN CORPUSCULAR HGB CONC 30.9 g/dL (32.0-36.0); MEAN CORPUSCULAR VOLUME 84.7 fL (79-99); MONOCYTES % (AUTO) 6.8 % (3.0-13.0); NEUTROPHILS % (AUTO) 73.1 % (40.0-77.0); PLATELET COUNT (AUTO) 186 K/uL (130-400); RED BLOOD CELL COUNT(AUTO) 3.98 MIL/uL (4.00-5.50); WHITE BLOOD COUNT (AUTO) 5.5 K/uL (4.8-10.8)
[2022-02-14 16:29] LABS: CREATININE 1.1 mg/dL (0.5-1.5); POTASSIUM 4.2 mmol/L (3.5-5.1)
== END | disposition home or self-care (01) ==
LOC: LAB 14:26
PROVIDERS: ATTEND Nurse Practitioner Acute Care
DX: I50.22 Chronic systolic (congestive) heart failure (principal); Z79.01 Long term (current) use of anticoagulants
CPT/HCPCS: 36415; 80048; 85025

== ENCOUNTER 2022-05-28 05:54 | Day surgery (SDC) | payer MEDICAID ==
[2022-05-25 12:13] LABS: BASOPHILS % (AUTO) 0.5 % (0.0-5.0); EOSINOPHILS % (AUTO) 2.6 % (0.0-8.0); HEMATOCRIT 35.1 % (36-48); LYMPHOCYTES % (AUTO) 19.3 % (21.0-51.0); MEAN CORPUSCULAR HEMOGLOBIN 25.8 pg (27.0-33.0); MEAN CORPUSCULAR HGB CONC 30.8 g/dL (32.0-36.0); MONOCYTES % (AUTO) 7.4 % (3.0-13.0); NEUTROPHILS % (AUTO) 69.9 % (40.0-77.0); PLATELET COUNT (AUTO) 151 K/uL (130-400); RED BLOOD CELL COUNT(AUTO) 4.18 MIL/uL (4.00-5.50); RED CELL DISTRIBUTION WIDTH 16.2 % (11.0-15.5); WHITE BLOOD COUNT (AUTO) 3.8 K/uL (4.8-10.8)
[2022-05-25 13:09] LABS: CREATININE 0.9 mg/dL (0.5-1.5); POTASSIUM 4.7 mmol/L (3.5-5.1)
[2022-05-25 13:11] VITALS: BP 129/68
[2022-05-25 13:35] LABS: INR 0.95 (0.85-1.15); PROTHROMBIN TIME 10.4 SEC (9.6-11.6)
[2022-05-25 13:37] LABS: PARTIAL THROMBOPLASTIN TIME 27.6 SEC (26.3-35.5)
[2022-05-28] VITALS (9 sets, daily range): BP systolic 119–140; BP diastolic 57–68
[~2022-05-28] VITALS: Ht 154.9 cm; Wt 81.2 kg
[~2022-05-28 05:54] MED LIST changes: -ALBU90AE IH; +BUDE10.22 IH; -DIAZ2TAB3 PO; +FAMO40TA7 PO; +FLUT16H NS; +GABA-529 PO; -GABA300C PO; +NITR0.4T50 SL; +OMEP40CA21 PO; -ONDA4TAB10 PO; -PANT40TA PO; +POTA-79 PO; +SUCR1ORA15 PO; +TRAM50TA4 PO
[2022-05-28] MEDS ORDERED: 0.9%NACL 1000ML 1,000 ML IV ONE (06:54)
[2022-05-28] MEDS ORDERED: CEFAZOLIN SODIUM 1 GM VIAL ONE (07:17)
[2022-05-28] MEDS ORDERED: BUPIVACAINE/PF 0.25% 10ML VIAL IJ ONE (07:17)
[2022-05-28] MEDS ORDERED: LIDOCAINE HCL 1% MDV 50ML VIAL ONE (07:17)
[2022-05-28] MEDS ORDERED: MEPERIDINE-PF 25 MG/ML SYG ONE ×3 (07:18→08:13)
[2022-05-28] MEDS ORDERED: MIDAZOLAM HCL 1 MG/ML 2ML VIAL ONE ×3 (07:18→08:13)
[2022-05-28] MEDS ORDERED: BACITRACIN 1 EACH PACKET TP ONE (08:39)
[2022-05-28] MEDS ORDERED: ACETAMINOPHEN 500 MG TABLET PO PRN (09:00)
[2022-05-28] MEDS ORDERED: ACETAMINOPHEN WITH CODEINE 1 TAB TAB PO PRN (09:00)
[2022-05-28] MEDS ORDERED: ACETAMINOPHEN WITH CODEINE 1 TAB TAB ONE ×2 (09:36→11:56)
[2022-05-28] MEDS ORDERED: TRAM50TA4 PO (10:33)
== END 2022-05-28 12:20 | disposition home or self-care (01) ==
LOC: DAH 05:54
PROVIDERS: ATTEND Internal Medicine Cardiovascular Disease
DX: Z45.02 Encounter for adjustment and management of automatic implantable cardiac defibrillator (principal); I42.8 Other cardiomyopathies; I50.42 Chronic combined systolic (congestive) and diastolic (congestive) heart failure; I48.0 Paroxysmal atrial fibrillation; R55 Syncope and collapse; Z79.899 Other long term (current) drug therapy; Z98.891 History of uterine scar from previous surgery; Z98.890 Other specified postprocedural states
CPT/HCPCS: 80048; 85025; 85610; 85730; 36415; 93005; 33263; C1721; J0690; J7030; J2250 ×3; J2175 ×3; J3490; A4222; A4221; A4663; A4216; A4606; A4223 ×2; S0020; 99156; 99157

== ENCOUNTER → 2022-06-11 | Outpatient (CLI) | payer MEDICAID ==
[~2022-06-11] MED LIST changes: +REGADENOSON 0.4 MG/5 ML PF SYG IVP ONE
== END | disposition home or self-care (01) ==
LOC: SHCH 08:59
PROVIDERS: ATTEND Internal Medicine Cardiovascular Disease
DX: I42.0 Dilated cardiomyopathy (principal); R55 Syncope and collapse; I51.7 Cardiomegaly; I25.9 Chronic ischemic heart disease, unspecified
CPT/HCPCS: 78452; 96374; 93017; J2785; A9500 ×2

== ENCOUNTER 2022-10-31 06:25 | Day surgery (SDC) | payer MEDICAID ==
[2022-10-26 13:47] VITALS: BP 141/68; PULSE 84; RESP 16
[2022-10-26 13:50] LABS: BASOPHILS # (AUTO) 0.03 K/uL (0.00-0.20); BASOPHILS % (AUTO) 0.6 % (0.0-5.0); EOSINOPHILS # (AUTO) 0.08 K/uL (0.00-0.70); EOSINOPHILS % (AUTO) 1.5 % (0.0-8.0); HEMATOCRIT 36.3 % (36-48); IMMATURE GRANULOCYTE ABSOLUTE 0.02 K/uL (0-1); LYMPHOCYTES # (AUTO) 1.4 K/uL (1.0-4.8); LYMPHOCYTES % (AUTO) 25.8 % (21.0-51.0); MEAN CORPUSCULAR HEMOGLOBIN 25.5 pg (27.0-33.0); MEAN CORPUSCULAR HGB CONC 30.6 g/dL (32.0-36.0); MEAN CORPUSCULAR VOLUME 83.3 fL (79-99); MONOCYTES # (AUTO) 0.5 K/uL (0.1-1.0); MONOCYTES % (AUTO) 8.8 % (3.0-13.0); NEUTROPHILS # (AUTO) 3.4 K/uL (1.8-7.7); NEUTROPHILS % (AUTO) 62.9 % (40.0-77.0); PLATELET COUNT (AUTO) 157 K/uL (130-400); RED BLOOD CELL COUNT(AUTO) 4.36 MIL/uL (4.00-5.50); RED CELL DISTRIBUTION WIDTH 16.3 % (11.0-15.5); WHITE BLOOD COUNT (AUTO) 5.3 K/uL (4.8-10.8)
[2022-10-26 14:07] LABS: ADD UA MICROSCOPIC YES; APPEARANCE,URINE CLEAR (CLEAR); BILIRUBIN,URINE NEGATIVE (NEGATIVE); COLOR,URINE YELLOW (YELLOW); GLUCOSE, URINE (UA) NEGATIVE (NEGATIVE); KETONES,URINE NEGATIVE (NEGATIVE); LEUKOCYTE ESTERASE ,URINE 75 Leu/uL (NEGATIVE); NITRATE,URINE NEGATIVE (NEGATIVE); OCCULT BLOOD,URINE NEGATIVE (NEGATIVE); PROTEIN,URINE 30 mg/dL (NEGATIVE); UROBILINOGEN,URINE 3 mg/dL (0.2-1.0)
[2022-10-26 14:07] LABS: INR 1.01 (0.85-1.15); PROTHROMBIN TIME 11.7 SEC (9.6-11.6)
[2022-10-26 14:08] LABS: PARTIAL THROMBOPLASTIN TIME 27.1 SEC (26.3-35.5)
[2022-10-26 14:10] LABS: CREATININE 1.1 mg/dL (0.5-1.5); POTASSIUM 4.4 mmol/L (3.5-5.1)
[2022-10-26 14:12] LABS: BACTERIA,URINE FEW /HPF (None Seen); MUCUS,URINE RARE LPF (None Seen); SQUAMOUS EPITHELIAL CELL,UR RARE /HPF (0-2); WBC,URINE 26-50 /HPF (0-1)
[2022-10-26 14:52] LABS: B-TYPE NATRIURETIC PEPTIDE 1170 pg/mL (0-100)
[~2022-10-31] VITALS: Ht 162.6 cm; Wt 72.7 kg
[2022-10-31] VITALS (13 sets, daily range): BP systolic 105–168; BP diastolic 54–97; PULSE 72–95; RESP 12–22
[~2022-10-31 06:25] MED LIST changes: +POTA-364 PO; -POTA-79 PO; -REGADENOSON 0.4 MG/5 ML PF SYG IVP ONE
[2022-10-31 07:16] LABS: APPEARANCE,URINE CLEAR (CLEAR); BILIRUBIN,URINE NEGATIVE (NEGATIVE); COLOR,URINE YELLOW (YELLOW); GLUCOSE, URINE (UA) NEGATIVE (NEGATIVE); KETONES,URINE NEGATIVE (NEGATIVE); LEUKOCYTE ESTERASE ,URINE 250 Leu/uL (NEGATIVE); NITRATE,URINE NEGATIVE (NEGATIVE); OCCULT BLOOD,URINE NEGATIVE (NEGATIVE); PH,URINE 5.5 (5.0-8.0); PROTEIN,URINE NEGATIVE (NEGATIVE); UROBILINOGEN,URINE 0.2 mg/dL (0.2-1.0)
[2022-10-31] MEDS ORDERED: 0.9%NACL 1000ML 1,000 ML IV ONE (07:26)
[2022-10-31 08:06] LABS: ADD UA MICROSCOPIC YES
[2022-10-31 08:41] LABS: BACTERIA,URINE RARE /HPF (None Seen); MUCUS,URINE RARE LPF (None Seen); SQUAMOUS EPITHELIAL CELL,UR FEW /HPF (0-2); WBC CLUMP RARE /HPF (0-1)
[2022-10-31] MEDS ORDERED: ONDA-104 PO (08:51)
[2022-10-31] MEDS ORDERED: IBUP-2697 PO (08:51)
[2022-10-31] MEDS ORDERED: ASPI-1190 PO (08:51)
[2022-10-31] MEDS ORDERED: ACET-2079 PO (08:51)
[2022-10-31] MEDS ORDERED: AEC81 PO (08:51)
[2022-10-31] MEDS ORDERED: ACET-2743 PO (08:51)
[2022-10-31] MEDS ORDERED: EXCEDRIN TENSION HA (08:51)
[2022-10-31] MEDS ORDERED: IOHEXOL 350 MG/ML 100ML INFUS..BTL IV ONE (10:20)
[2022-10-31] MEDS ORDERED: IOHEXOL-350 50ML VIAL IV ONE (10:20)
[2022-10-31] MEDS ORDERED: LIDOCAINE HCL 400MG/20ML VIAL ONE (10:20)
[2022-10-31] MEDS ORDERED: FENTANYL CITRATE PF 50 MCG/1 ML 2ML VIAL ONE (10:50)
[2022-10-31] MEDS ORDERED: MIDAZOLAM HCL 1 MG/ML 2ML VIAL ONE (10:55)
[2022-10-31] MEDS ORDERED: NITROGLYCERIN 0.4 MG SL TAB SL ONE (11:41)
[2022-10-31] MEDS ORDERED: MORPHINE 4 MG SYG ONE (11:41)
[2022-10-31] MEDS ORDERED: FUROSEMIDE 20MG VIAL ONE (11:42)
== END 2022-10-31 17:20 | disposition home or self-care (01) ==
LOC: DAH 06:25
PROVIDERS: ATTEND Internal Medicine Cardiovascular Disease
DX: I34.0 Nonrheumatic mitral (valve) insufficiency (principal); I25.10 Atherosclerotic heart disease of native coronary artery without angina pectoris; I27.20 Pulmonary hypertension, unspecified; I42.8 Other cardiomyopathies; I48.0 Paroxysmal atrial fibrillation; I50.42 Chronic combined systolic (congestive) and diastolic (congestive) heart failure; J90 Pleural effusion, not elsewhere classified; Z79.01 Long term (current) use of anticoagulants; Z79.899 Other long term (current) drug therapy; Z86.73 Personal history of transient ischemic attack (TIA), and cerebral infarction without residual deficits; Z98.890 Other specified postprocedural states; Z98.891 History of uterine scar from previous surgery
CPT/HCPCS: 80048; 83880; 85025; 85610; 85730; 87088 ×2; 81001 ×2; 36415; 71045; 93005; 93460; C1894 ×3; C1769 ×2; C1760; J3010; J3490; J7030; J2250; J2270; J1940; J1644; Q9967 ×2; A4215; A4223; A4335; A4222; A4221; Q9965; A4554; 99156; 99157

== ENCOUNTER → 2023-03-08 | Outpatient (CLI) | payer MEDICAID ==
[~2023-03-08] MED LIST changes: +ACET-2079 PO; +ACET-2743 PO; +AEC81 PO; +ASPI-1190 PO; +EXCEDRIN TENSION HA; -FAMO40TA7 PO; -GABA-529 PO; +IBUP-2697 PO; +ONDA-104 PO; -POTA-364 PO; -SUCR1ORA15 PO; -TRAM50TA4 PO
[2023-03-08 12:46] LABS: BASOPHILS # (AUTO) 0.02 K/uL (0.00-0.20); BASOPHILS % (AUTO) 0.4 % (0.0-5.0); EOSINOPHILS # (AUTO) 0.14 K/uL (0.00-0.70); EOSINOPHILS % (AUTO) 2.8 % (0.0-8.0); HEMATOCRIT 34.3 % (36-48); IMMATURE GRANULOCYTE ABSOLUTE 0.01 K/uL (0-1); LYMPHOCYTES # (AUTO) 1.1 K/uL (1.0-4.8); LYMPHOCYTES % (AUTO) 22.3 % (21.0-51.0); MEAN CORPUSCULAR HEMOGLOBIN 24.8 pg (27.0-33.0); MEAN CORPUSCULAR HGB CONC 30.3 g/dL (32.0-36.0); MEAN CORPUSCULAR VOLUME 81.7 fL (79-99); MONOCYTES # (AUTO) 0.4 K/uL (0.1-1.0); MONOCYTES % (AUTO) 8.4 % (3.0-13.0); NEUTROPHILS # (AUTO) 3.3 K/uL (1.8-7.7); NEUTROPHILS % (AUTO) 65.9 % (40.0-77.0); PLATELET COUNT (AUTO) 181 K/uL (130-400); RED CELL DISTRIBUTION WIDTH 18.5 % (11.0-15.5)
[2023-03-08 13:06] LABS: HEMOGLOBIN A1C 5.7 % (4.0-6.0)
[2023-03-08 13:15] LABS: BILIRUBIN,TOTAL 0.6 mg/dL (0.2-1.0); CREATININE 1.2 mg/dL (0.5-1.5); POTASSIUM 4.1 mmol/L (3.5-5.1); THYROID STIMULATING HORMONE 2.92 uIU/mL (0.36-3.74); TOTAL PROTEIN, SERUM 7.1 g/dL (6.0-8.3)
== END | disposition home or self-care (01) ==
LOC: LAB 11:41
PROVIDERS: ATTEND Internal Medicine Cardiovascular Disease
DX: Z00.00 Encounter for general adult medical examination without abnormal findings (principal); N18.2 Chronic kidney disease, stage 2 (mild); I50.42 Chronic combined systolic (congestive) and diastolic (congestive) heart failure; E78.5 Hyperlipidemia, unspecified; Z79.01 Long term (current) use of anticoagulants
CPT/HCPCS: 36415; 80053; 80061; 82043; 82306; 82570; 83036; 83880; 83970; 84443; 85025

== ENCOUNTER → 2023-05-03 | Outpatient (CLI) | payer MEDICAID ==
[2023-05-03 12:56] LABS: BASOPHILS # (AUTO) 0.03 K/uL (0.00-0.20); BASOPHILS % (AUTO) 0.6 % (0.0-5.0); EOSINOPHILS # (AUTO) 0.13 K/uL (0.00-0.70); EOSINOPHILS % (AUTO) 2.7 % (0.0-8.0); HEMATOCRIT 33.8 % (36-48); IMMATURE GRANULOCYTE ABSOLUTE 0.02 K/uL (0-1); LYMPHOCYTES # (AUTO) 0.9 K/uL (1.0-4.8); LYMPHOCYTES % (AUTO) 19.6 % (21.0-51.0); MEAN CORPUSCULAR HEMOGLOBIN 24.3 pg (27.0-33.0); MEAN CORPUSCULAR HGB CONC 30.2 g/dL (32.0-36.0); MEAN CORPUSCULAR VOLUME 80.5 fL (79-99); MONOCYTES # (AUTO) 0.4 K/uL (0.1-1.0); MONOCYTES % (AUTO) 7.8 % (3.0-13.0); NEUTROPHILS # (AUTO) 3.3 K/uL (1.8-7.7); NEUTROPHILS % (AUTO) 68.9 % (40.0-77.0); PLATELET COUNT (AUTO) 146 K/uL (130-400); RED CELL DISTRIBUTION WIDTH 17.3 % (11.0-15.5); WHITE BLOOD COUNT (AUTO) 4.7 K/uL (4.8-10.8)
[2023-05-03 13:42] LABS: ALBUMIN 2.7 g/dL (3.5-5.0); BILIRUBIN,TOTAL 0.5 mg/dL (0.2-1.0); CREATININE 1.1 mg/dL (0.5-1.5); POTASSIUM 4.7 mmol/L (3.5-5.1); TOTAL PROTEIN, SERUM 6.4 g/dL (6.0-8.3)
== END ==
LOC: LAB 11:54
DX: I13.0 Hypertensive heart and chronic kidney disease with heart failure and stage 1 through stage 4 chronic kidney disease, or unspecified chronic kidney disease (principal); N18.9 Chronic kidney disease, unspecified; I50.9 Heart failure, unspecified; I25.110 Atherosclerotic heart disease of native coronary artery with unstable angina pectoris; D63.1 Anemia in chronic kidney disease; E78.5 Hyperlipidemia, unspecified
CPT/HCPCS: 36415; 80053; 82728; 85025

== ENCOUNTER → 2023-05-14 | Outpatient (CLI) | payer MEDICAID ==
[2023-05-14 11:57] LABS: BASOPHILS # (AUTO) 0.03 K/uL (0.00-0.20); BASOPHILS % (AUTO) 0.7 % (0.0-5.0); EOSINOPHILS # (AUTO) 0.11 K/uL (0.00-0.70); EOSINOPHILS % (AUTO) 2.6 % (0.0-8.0); IMMATURE GRANULOCYTE ABSOLUTE 0.01 K/uL (0-1); LYMPHOCYTES # (AUTO) 1.2 K/uL (1.0-4.8); LYMPHOCYTES % (AUTO) 27.3 % (21.0-51.0); MEAN CORPUSCULAR HEMOGLOBIN 24.3 pg (27.0-33.0); MEAN CORPUSCULAR HGB CONC 29.4 g/dL (32.0-36.0); MEAN CORPUSCULAR VOLUME 82.6 fL (79-99); MONOCYTES # (AUTO) 0.4 K/uL (0.1-1.0); NEUTROPHILS # (AUTO) 2.5 K/uL (1.8-7.7); NEUTROPHILS % (AUTO) 59.2 % (40.0-77.0); PLATELET COUNT (AUTO) 154 K/uL (130-400); RED BLOOD CELL COUNT(AUTO) 4.36 MIL/uL (4.00-5.50); RED CELL DISTRIBUTION WIDTH 16.9 % (11.0-15.5); WHITE BLOOD COUNT (AUTO) 4.3 K/uL (4.8-10.8)
== END | disposition home or self-care (01) ==
LOC: LAB 11:10
DX: D50.0 Iron deficiency anemia secondary to blood loss (chronic) (principal); D50.1 Sideropenic dysphagia
CPT/HCPCS: 36415; 82728; 85025

== ENCOUNTER → 2023-07-12 | Outpatient (CLI) | payer MEDICAID ==
[~2023-07-12] MED LIST changes: +MEMA5TAB16 PO; -MEMA5TAB42 PO
[2023-07-12 14:28] LABS: BASOPHILS # (AUTO) 0.03 K/uL (0.00-0.20); BASOPHILS % (AUTO) 0.5 % (0.0-5.0); EOSINOPHILS # (AUTO) 0.09 K/uL (0.00-0.70); EOSINOPHILS % (AUTO) 1.6 % (0.0-8.0); HEMATOCRIT 36.3 % (36-48); IMMATURE GRANULOCYTE ABSOLUTE 0.03 K/uL (0-1); LYMPHOCYTES # (AUTO) 1.3 K/uL (1.0-4.8); LYMPHOCYTES % (AUTO) 23.5 % (21.0-51.0); MEAN CORPUSCULAR HEMOGLOBIN 25.3 pg (27.0-33.0); MEAN CORPUSCULAR HGB CONC 30.9 g/dL (32.0-36.0); MEAN CORPUSCULAR VOLUME 82.1 fL (79-99); MONOCYTES # (AUTO) 0.4 K/uL (0.1-1.0); MONOCYTES % (AUTO) 7.4 % (3.0-13.0); NEUTROPHILS # (AUTO) 3.7 K/uL (1.8-7.7); NEUTROPHILS % (AUTO) 66.5 % (40.0-77.0); PLATELET COUNT (AUTO) 152 K/uL (130-400); RED BLOOD CELL COUNT(AUTO) 4.42 MIL/uL (4.00-5.50); RED CELL DISTRIBUTION WIDTH 18.2 % (11.0-15.5); WHITE BLOOD COUNT (AUTO) 5.5 K/uL (4.8-10.8)
[2023-07-12 14:51] LABS: B-TYPE NATRIURETIC PEPTIDE 1370 pg/mL (0-100); BILIRUBIN,TOTAL 0.6 mg/dL (0.2-1.0); POTASSIUM 4.8 mmol/L (3.5-5.1)
== END | disposition home or self-care (01) ==
LOC: LAB 13:37
DX: J90 Pleural effusion, not elsewhere classified (principal); I11.9 Hypertensive heart disease without heart failure; Z95.0 Presence of cardiac pacemaker
CPT/HCPCS: 36415; 71046; 80053; 82550; 83880; 85025

== ENCOUNTER → 2023-09-10 | Outpatient (CLI) | payer MEDICAID ==
[2023-09-10 16:36] LABS: CREATININE 0.9 mg/dL (0.5-1.0); MAGNESIUM 1.8 mg/dL (1.80-2.40); POTASSIUM 4.5 mmol/L (3.5-5.1)
== END | disposition home or self-care (01) ==
LOC: LAB 13:14
PROVIDERS: ATTEND Internal Medicine Cardiovascular Disease
DX: I31.39 Other pericardial effusion (noninflammatory) (principal)
CPT/HCPCS: 36415; 80048; 83735; 83880

== ENCOUNTER 2023-09-11 10:48 | Emergency (ER) | payer MEDICAID ==
[~2023-09-11] VITALS: Ht 162.6 cm; Wt 81.6 kg
[2023-09-11 10:49] VITALS: BP 132/63; PULSE 85; RESP 26
== END 2023-09-11 11:01 | disposition left against medical advice (07) ==
LOC: EDH 10:48
DX: R06.02 Shortness of breath (principal); Z53.21 Procedure and treatment not carried out due to patient leaving prior to being seen by health care provider

== ENCOUNTER → 2023-09-11 | Outpatient (CLI) | payer MEDICAID | END | disposition home or self-care (01) | LOC: SHCH 09:27 | PROVIDERS: ATTEND Internal Medicine Cardiovascular Disease | DX: I08.3 Combined rheumatic disorders of mitral, aortic and tricuspid valves (principal); I31.39 Other pericardial effusion (noninflammatory); I27.20 Pulmonary hypertension, unspecified; Q21.10 Atrial septal defect, unspecified; J90 Pleural effusion, not elsewhere classified | CPT/HCPCS: 93308 ==

== ENCOUNTER → 2023-09-13 | Outpatient (CLI) | payer MEDICAID ==
[2023-09-13 15:20] LABS: CREATININE 1.1 mg/dL (0.5-1.0); POTASSIUM 4.8 mmol/L (3.5-5.1)
== END | disposition home or self-care (01) ==
LOC: LAB 11:48
PROVIDERS: ATTEND Nurse Practitioner Acute Care
DX: R07.89 Other chest pain (principal)
CPT/HCPCS: 36415; 80048

== ENCOUNTER → 2023-09-18 | Outpatient (CLI) | payer MEDICAID | END | disposition home or self-care (01) | LOC: RAH 08:32 | DX: R10.13 Epigastric pain (principal); I70.0 Atherosclerosis of aorta; J90 Pleural effusion, not elsewhere classified; Z90.49 Acquired absence of other specified parts of digestive tract | CPT/HCPCS: 76700 ==

== ENCOUNTER → 2023-10-04 | Outpatient (CLI) | payer MEDICAID ==
[2023-10-04 12:20] LABS: CREATININE 1.5 mg/dL (0.5-1.0)
== END | disposition home or self-care (01) ==
LOC: LAB 10:15
PROVIDERS: ATTEND Internal Medicine Cardiovascular Disease
DX: I25.10 Atherosclerotic heart disease of native coronary artery without angina pectoris (principal)
CPT/HCPCS: 36415; 80048

== ENCOUNTER → 2023-11-27 | Outpatient (CLI) | payer MEDICAID | END | disposition home or self-care (01) | LOC: SHCH 10:13 | PROVIDERS: ATTEND Internal Medicine Cardiovascular Disease | DX: I31.39 Other pericardial effusion (noninflammatory) (principal) | CPT/HCPCS: 93306 ==

== ENCOUNTER → 2024-03-05 | Outpatient (CLI) | payer MEDICAID ==
[2024-03-05 12:03] LABS: BASOPHILS # (AUTO) 0.02 K/uL (0.00-0.20); BASOPHILS % (AUTO) 0.5 % (0.0-5.0); EOSINOPHILS # (AUTO) 0.15 K/uL (0.00-0.70); IMMATURE GRANULOCYTE ABSOLUTE 0.01 K/uL (0-1); LYMPHOCYTES # (AUTO) 0.8 K/uL (1.0-4.8); LYMPHOCYTES % (AUTO) 21.8 % (21.0-51.0); MEAN CORPUSCULAR HEMOGLOBIN 25.8 pg (27.0-33.0); MEAN CORPUSCULAR VOLUME 86.2 fL (79-99); MONOCYTES # (AUTO) 0.4 K/uL (0.1-1.0); MONOCYTES % (AUTO) 10.2 % (3.0-13.0); NEUTROPHILS # (AUTO) 2.4 K/uL (1.8-7.7); NEUTROPHILS % (AUTO) 63.2 % (40.0-77.0); PLATELET COUNT (AUTO) 131 K/uL (130-400); RED BLOOD CELL COUNT(AUTO) 3.83 MIL/uL (4.00-5.50); RED CELL DISTRIBUTION WIDTH 24.6 % (11.0-15.5); WHITE BLOOD COUNT (AUTO) 3.7 K/uL (4.8-10.8)
[2024-03-05 12:24] LABS: ALBUMIN 2.4 g/dL (3.5-5.0); BILIRUBIN,TOTAL 0.4 mg/dL (0.2-1.0); POTASSIUM 4.2 mmol/L (3.5-5.1)
== END | disposition home or self-care (01) ==
LOC: LAB 10:30
PROVIDERS: ATTEND Internal Medicine Cardiovascular Disease
DX: I50.22 Chronic systolic (congestive) heart failure (principal)
CPT/HCPCS: 36415; 80053; 83735; 83880; 85025

== ENCOUNTER → 2024-03-17 | Outpatient (CLI) | payer MEDICAID ==
[2024-03-17 16:36] LABS: CREATININE 0.9 mg/dL (0.5-1.0); POTASSIUM 4.5 mmol/L (3.5-5.1)
== END | disposition home or self-care (01) ==
LOC: LAB 11:30
PROVIDERS: ATTEND Internal Medicine Cardiovascular Disease
DX: I11.0 Hypertensive heart disease with heart failure (principal); I50.22 Chronic systolic (congestive) heart failure
CPT/HCPCS: 36415; 80048; 83880

== ENCOUNTER → 2024-03-24 | Outpatient (CLI) | payer MEDICAID | END | disposition home or self-care (01) | LOC: LAB 14:09 | PROVIDERS: ATTEND Internal Medicine Cardiovascular Disease | DX: I50.22 Chronic systolic (congestive) heart failure (principal) | CPT/HCPCS: 36415; 83880 ==

== ENCOUNTER → 2024-04-30 | Outpatient (CLI) | payer MEDICAID ==
[2024-04-30 16:45] LABS: CREATININE 0.9 mg/dL (0.5-1.0); POTASSIUM 4.5 mmol/L (3.5-5.1)
== END | disposition home or self-care (01) ==
LOC: LAB 11:47
PROVIDERS: ATTEND Internal Medicine Cardiovascular Disease
DX: I50.22 Chronic systolic (congestive) heart failure (principal)
CPT/HCPCS: 36415; 80048; 83880

== ENCOUNTER 2024-06-16 08:19 | Day surgery (SDC) | payer MEDICAID ==
[2024-06-12 11:14] LABS: BASOPHILS # (AUTO) 0.04 K/uL (0.00-0.20); BASOPHILS % (AUTO) 0.8 % (0.0-5.0); EOSINOPHILS # (AUTO) 0.16 K/uL (0.00-0.70); EOSINOPHILS % (AUTO) 3.4 % (0.0-8.0); HEMATOCRIT 34.2 % (36-48); IMMATURE GRANULOCYTE ABSOLUTE 0.01 K/uL (0-1); LYMPHOCYTES # (AUTO) 0.7 K/uL (1.0-4.8); LYMPHOCYTES % (AUTO) 14.2 % (21.0-51.0); MEAN CORPUSCULAR HEMOGLOBIN 29.5 pg (27.0-33.0); MEAN CORPUSCULAR HGB CONC 32.7 g/dL (32.0-36.0); MONOCYTES # (AUTO) 0.4 K/uL (0.1-1.0); MONOCYTES % (AUTO) 9.1 % (3.0-13.0); NEUTROPHILS # (AUTO) 3.4 K/uL (1.8-7.7); NEUTROPHILS % (AUTO) 72.3 % (40.0-77.0); PLATELET COUNT (AUTO) 149 K/uL (130-400); RED CELL DISTRIBUTION WIDTH 13.2 % (11.0-15.5); WHITE BLOOD COUNT (AUTO) 4.7 K/uL (4.8-10.8)
[2024-06-12 11:16] VITALS: BP 128/85; PULSE 83; RESP 18; TEMP 97.9
--- NOTE | 2024-06-12 11:22 | EKG ---
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
[2024-06-12 11:27] LABS: ALBUMIN 2.6 g/dL (3.5-5.0); BILIRUBIN,TOTAL 0.4 mg/dL (0.2-1.0); POTASSIUM 4.8 mmol/L (3.5-5.1)
[2024-06-12 11:39] LABS: INR 1.02 (0.85-1.15); PROTHROMBIN TIME 10.8 SEC (9.6-11.6)
[2024-06-12 11:40] LABS: PARTIAL THROMBOPLASTIN TIME 28.1 SEC (26.3-35.5)
[2024-06-12 11:41] LABS: B-TYPE NATRIURETIC PEPTIDE 645 pg/mL (0-100)
--- NOTE | 2024-06-15 11:53 | NUR ---
REPORT REPORTED BNP. TO ALYSE TOBAR OK TO PROCEED
[~2024-06-16] VITALS: Ht 162.6 cm; Wt 73.5 kg
[2024-06-16] VITALS (23 sets, daily range): BP systolic 128–162; BP diastolic 55–77; PULSE 45–82; RESP 13–18; TEMP 97.3–97.6
[~2024-06-16 08:19] MED LIST changes: -AEC81 PO; -ASPI-1190 PO; -BUDE10.22 IH; +DAPA10TA PO; -ESCI5TAB16 PO; -EXCEDRIN TENSION HA; -FLUT16H NS; -IBUP-2697 PO; +IPRA3AMP24 IH; +LEVA15HF6 IH; +METO-408 PO; +METO2.5T2 PO; -OMEP40CA21 PO; +POTA20PA32 PO
--- NOTE | 2024-06-16 09:00 | NUR ---
consult: dr. esequiel barajas made aware of pt taking entresto this morning, ok to proceed with procedure.
[2024-06-16] MEDS: 0.9%NACL 1000ML 1,000 ML IV SCH (09:12)
[2024-06-16] MEDS ORDERED: SODIUM BICARB 50MEQ 50ML VIAL 50 ML ONE (11:08)
[2024-06-16] MEDS ORDERED: BUPIvacaine/PF 0.25% 30ML VIAL IJ ONE (11:08)
[2024-06-16] MEDS ORDERED: LIDOCAINE HCL 1% MDV 50ML VIAL ONE (11:08)
[2024-06-16] MEDS ORDERED: ceFAZolin SODIUM 1 GM VIAL ONE (11:08)
[2024-06-16] MEDS ORDERED: rocuRONium bROMide 10MG/1ML 5ML VL ONE (11:20)
[2024-06-16] MEDS ORDERED: proPOFol 10 MG/ML 20ML VIAL IV ONE (11:20)
[2024-06-16] MEDS ORDERED: MIDAZOLAM HCL 1 MG/ML 2ML VIAL ONE (11:20)
[2024-06-16] MEDS ORDERED: FENTanyl CITRate PF 50 MCG/1 ML 2ML VIAL ONE ×2 (11:21→13:07)
[2024-06-16] MEDS ORDERED: phenylEPHRINE HCL 10 MG/ML 1ML VIAL IV ONE (12:31)
[2024-06-16] MEDS ORDERED: proPOFol 1000 MG/100 ML 100 ML IV ONE (12:57)
[2024-06-16] MEDS ORDERED: BACITRACIN 1 EACH PACKET TP ONE (13:01)
[2024-06-16] MEDS ORDERED: SUGAMMADEX SODIUM 200 MG/2 ML VIAL IV ONE (13:03)
[2024-06-16] MEDS ORDERED: acetaMINOPHEN WITH coDEINE 1 TAB TAB PO PRN (13:30)
[2024-06-16] MEDS: morPHINE 2 MG SYG ONE (13:50)
[2024-06-16] MEDS: acetaMINOPHEN 500 MG TABLET PO PRN (15:00)
--- NOTE | 2024-06-16 16:05 | NUR ---
PRESSURE DRESSING TO LEFT UPPER CHEST REMOVED AT THIS TIME. MINIMAL OOZING NOTED ON NON-ADHERENT DRESSING. SURROUNDING AREA SOFT, NON-TENDER, NO HEMATOMA NOTED. PATIENT AND DAUGHTER AT BEDSIDE EDUCATED REGARDING DAILY DRESSING CHANGES AND SIGNS OF INFECTION, VERBALIZED UNDERSTANDING.
--- NOTE | 2024-06-16 18:17 | HMCSR ---
APPROVED REPORT EXAM: LIMITED Two-dimensional and M-mode echocardiogram with Doppler and color Doppler. Study Details: previous echo 05/19/24 INDICATION ICD: r/o pericardial effusion, CHF 2D Dimensions RVDd4.1 cmLVED Vol(simp.)134.0 mL LVES Vol(simp.)85.0 mL LVEF(%, simp.)36 % LA ESV INDEX (BP)77.01 mL/m2 Deformation Strain Apical 4-9.4 % Apical 2-7.4 % Apical 3-9.1 % Global Strain-8.6 % Left Ventricle Left ventricular cavity size is moderately dilated. Moderate global hypokinesis. There is normal left ventricular wall thickness. LVEF is 35%. LVEF estimate was 25-30% on 05/19/2024. GLPS is 36 %. Right Ventricle Device lead is present in the right ventricle. Atria The left atrium is severely dilated. Mitral Valve MitraClip device in place. No imaging performed to assess severity of MR on this limited echo to asse ss pericardial effusion. Tricuspid Valve The tricuspid valve is normal in structure. Great Vessels The IVC is normal in size and collapses >50% with inspiration. Pericardium Moderate, primarily dependent pericardial effusion. Previous echo 05/19/2024 also demonstrated a modera te effusion. Effusion measures 1.3 cm in greatest dimension (< 1.0 cm is a small effusion; 1.0 to 2.0 is moderate). No mitral inflow respiratory variation to suggest tamponade. Conclusion Left ventricular cavity size is moderately dilated. Moderate global hypokinesis. LVEF is 35%. LVEF estimate was 25-30% on 05/19/2024. GLPS is 36 %. Device lead is present in the right ventricle. The left atrium is severely dilated. MitraClip device in place. No imaging performed to assess severity of MR on this limited echo to assess pericardial effusion. Moderate, primarily dependent pericardial effusion. Previous echo 05/19/2024 also demonstrated a modera te effusion. Effusion measures 1.3 cm in greatest dimension (< 1.0 cm is a small effusion; 1.0 to 2.0 is moderate) . No mitral inflow respiratory variation to suggest tamponade.
--- NOTE | 2024-07-02 09:48 | PRN ---
Procedure Note INDICATION FOR PROCEDURE: ICD displacement PROCEDURE: ICD pocket revision DATE OF PROCEDURE: 06/16/2024 FIRE SUPPORT SPECIALIST: Sveta Gee PROCEDURE NOTE: The patient was brought to the laboratory chemical assistant in a fasting state. Moderate sedation was achieved with the midazolam and fentanyl. The area of the implant was infiltrated with local anesthetic. The existing scar was excised in the pocket was opened. As per previous clinical findings, the ICD generator which was previously implanted and replaced subpectoral really was fairly mobile along with the surrounding tissues. The generator was removed and fibrous tissue was debrided. The device was secured in the pocket with two 0-Ethibond sutures, one of which was passed through the anterior periosteum of one of the ribs. The generator, which was previously able to be rotated in the axial plane, remained fixed. The pocket was irrigated with an antibiotic-containing solution. The muscle was then reapproximated with 2-0 Vicryl. The subcutaneous tissues were closed in two layers with 2-0 Vicryl and the skin was closed with lynne. The wound was covered with a sterile dressing and the patient was returned to her room in stable condition. The patient tolerated the procedure well. COMPLICATIONS: None IMPRESSION: Successful ICD pocket revision PLAN: The patient will be observed and discharged later today. She will follow up with the in the office in 10-14 days. DERRELL BURCH MD July 02, 2024 09:48
== END 2024-06-16 16:20 | disposition home or self-care (01) ==
LOC: DAH 08:19
PROVIDERS: ATTEND Internal Medicine Cardiovascular Disease
DX: T82.118A Breakdown (mechanical) of other cardiac electronic device, initial encounter (principal); I11.0 Hypertensive heart disease with heart failure; I50.42 Chronic combined systolic (congestive) and diastolic (congestive) heart failure; I25.10 Atherosclerotic heart disease of native coronary artery without angina pectoris; I31.39 Other pericardial effusion (noninflammatory); I25.2 Old myocardial infarction; I49.3 Ventricular premature depolarization; R94.39 Abnormal result of other cardiovascular function study; I48.0 Paroxysmal atrial fibrillation; I42.8 Other cardiomyopathies; I34.0 Nonrheumatic mitral (valve) insufficiency; I48.92 Unspecified atrial flutter; J44.9 Chronic obstructive pulmonary disease, unspecified; Z95.818 Presence of other cardiac implants and grafts; Z79.01 Long term (current) use of anticoagulants; Z87.898 Personal history of other specified conditions; Z95.810 Presence of automatic (implantable) cardiac defibrillator; Z98.891 History of uterine scar from previous surgery; Z98.890 Other specified postprocedural states; Z79.899 Other long term (current) drug therapy; Y71.8 Miscellaneous cardiovascular devices associated with adverse incidents, not elsewhere classified
CPT/HCPCS: 80053; 83880; 85025; 85610; 85730; 36415; 93005; 17999; 93356; 93308; A4223 ×3; J3010 ×2; J0690; J2270; J7030; J0665; J3490 ×3; J2250; J2704 ×2; J2371; A4215; A4222; A4221; A4663; A4216; A4606; 33223

== ENCOUNTER → 2024-07-27 | Outpatient (CLI) | payer MEDICAID ==
--- NOTE | 2024-07-27 09:43 | HMCIMG ---
Findings: No fluid collections or masses are seen. Significantly, there is no evidence of hematoma. There is increased fluid throughout the area of concern consistent with cellulitis or edema. No lymphadenopathy is identified. Impression: No evidence of hematoma or fluid collections. There is increased fluid throughout the area of concern consistent with cellulitis or edema.
== END | disposition home or self-care (01) ==
LOC: RAH 08:45
DX: R22.2 Localized swelling, mass and lump, trunk (principal)
CPT/HCPCS: 76705

== ENCOUNTER → 2025-01-19 | Outpatient (CLI) | payer MEDICAID ==
[~2025-01-19] MED LIST changes: -ACET-2743 PO; +ALBU18HF7 IH; -AMIO200T68 PO; +AMIO200T73 PO; -DAPA10TA PO; +ESCI-8 PO; +GABA300C PO; -IPRA3AMP24 IH; -LEVA15HF6 IH; +METALOZONE PO; -METO2.5T2 PO; -NITR0.4T50 SL; -ONDA-104 PO
[2025-01-19 11:00] LABS: ASPARTATE AMINOTRANSFERASE 28.0 U/L (10-37); CREATININE 1.0 mg/dL (0.5-1.0); GLOMERULAR FILTR. RATE CALC 61.0 mL/min (>90); GLUCOSE,RANDOM 80.0 mg/dL (70-105); SODIUM SERUM 144.0 mmol/L (136-145); TOTAL PROTEIN, SERUM 7.1 g/dL (6.0-8.3); UREA NITROGEN, BLOOD 17.0 mg/dL (7-18)
--- NOTE | 2025-01-19 17:50 | HMCIMG ---
EXAM: CR CHEST, 2 VIEWS CLINICAL HISTORY: Bilateral pleural effusion COMPARISON: None provided TECHNIQUE: Frontal and lateral radiographs of the chest. FINDINGS: Lines/Devices: A pacemaker is seen overlying the left chest wall with intact leads. Lungs: Faint right mid zone opacities are noted, mostly representing congestion versus less likely inflammatory process. Mild to moderate right pleural effusion. Mild left pleural effusion. There is no pneumothorax. Mediastinum and cardiovascular structures: Prominent aortic arch with calcified atheromatous plaques. Mild cardiomegaly with ECHO correlation. The central airway and mediastinal contours are unremarkable. Bones and soft tissues: Cholecystectomy clips are seen at the right hypochondrial region. Unremarkable. IMPRESSION: 1. Faint right mid zone opacities, possibly representing congestion or less likely an inflammatory process. 2. Mild bilateral pleural effusion more on the right side. 3. Mild cardiomegaly. /[place]
== END | disposition home or self-care (01) ==
LOC: LAB 10:08
DX: J90 Pleural effusion, not elsewhere classified (principal); I13.0 Hypertensive heart and chronic kidney disease with heart failure and stage 1 through stage 4 chronic kidney disease, or unspecified chronic kidney disease; N18.31 Chronic kidney disease, stage 3a; I50.43 Acute on chronic combined systolic (congestive) and diastolic (congestive) heart failure; I42.0 Dilated cardiomyopathy; I89.0 Lymphedema, not elsewhere classified; Z95.810 Presence of automatic (implantable) cardiac defibrillator
CPT/HCPCS: 36415; 71046; 80053